=== PATIENT | female | born 1995 | race Hispanic/Latino ===

== ENCOUNTER 2017-07-30 19:35 | Observation (INO) | payer MEDICAID ==
[~2017-07-30] VITALS: Ht 149.9 cm; Wt 64.0 kg
[2017-07-30 20:23] LABS: APPEARANCE,URINE Cloudy (CLEAR); BILIRUBIN,URINE Negative (NEGATIVE); COLOR,URINE Yellow (YELLOW); GLUCOSE, URINE (UA) TRACE mg/dL (NEGATIVE); KETONES,URINE Trace mg/dL (NEGATIVE); LEUKOCYTE ESTERASE ,URINE Large (NEGATIVE); NITRATE,URINE Negative (NEGATIVE); OCCULT BLOOD,URINE Negative (NEGATIVE); PROTEIN,URINE Trace (NEGATIVE)
[2017-07-30] MEDS ORDERED: CEPHALEXIN 500 MG CAPSULE ONE (20:38)
[2017-07-30] MEDS ORDERED: PREN-196 PO (20:53)
[2017-07-30 20:57] LABS: BACTERIA,URINE Few /HPF (None Seen); RBC,URINE None Seen /HPF (0-1)
[2017-07-30 20:58] LABS: SQUAMOUS EPITHELIAL CELL,UR 30-50 /LPF (0-2)
[2017-07-30] MEDS ORDERED: LACTATED RINGERS 1000ML 1,000 ML IV SCH (21:00)
== END 2017-07-30 23:03 | disposition home or self-care (01) ==
LOC: EDH 19:35 → LDH 21:01
PROVIDERS: ADMIT Obstetrics & Gynecology; ATTEND Obstetrics & Gynecology
DX: O26.893 Other specified pregnancy related conditions, third trimester (principal); R10.2 Pelvic and perineal pain; Z3A.37 37 weeks gestation of pregnancy; M54.9 Dorsalgia, unspecified
CPT/HCPCS: 81001; 87088; 87186; 87804 ×2; 96360; 99285; G0378 ×2; J7120

== ENCOUNTER 2017-08-20 00:39 | Inpatient (IN) | payer MEDICAID ==
[~2017-08-20] VITALS: Ht 149.9 cm; Wt 63.5 kg
[~2017-08-20 00:39] MED LIST: PREN-196 PO
[2017-08-20 01:28] LABS: APPEARANCE,URINE Cloudy (CLEAR); BILIRUBIN,URINE Negative (NEGATIVE); COLOR,URINE Yellow (YELLOW); GLUCOSE, URINE (UA) Negative (NEGATIVE); KETONES,URINE >=160 mg/dL (NEGATIVE); LEUKOCYTE ESTERASE ,URINE Moderate (NEGATIVE); NITRATE,URINE Negative (NEGATIVE); OCCULT BLOOD,URINE Negative (NEGATIVE); PROTEIN,URINE Trace (NEGATIVE)
[2017-08-20 01:35] LABS: AMORPHOUS SEDIMENT,UR Many /LPF (None Seen); BACTERIA,URINE Few /HPF (None Seen); MUCUS,URINE Moderate LPF (None Seen); RBC,URINE 0-1 /HPF (0-1); SQUAMOUS EPITHELIAL CELL,UR Moderate /LPF (0-2)
[2017-08-20] MEDS ORDERED: MEPERIDINE-PF 50 MG/ML SYG IVP ONE (01:45)
[2017-08-20] MEDS ORDERED: NALOXONE HCL 0.4 MG/1 ML ML IV PRN (01:45)
[2017-08-20] MEDS ORDERED: PROMETHAZINE HCL 25 MG/ML 1ML AMPULE IM SCH ×2 (01:45→13:45)
[2017-08-20] MEDS ORDERED: EPHEDRINE SULFATE 50 MG/ML AMPULE IVP PRN (01:45)
[2017-08-20] MEDS ORDERED: LACTATED RINGERS 500 ML 500 ML IV PRN (01:45)
[2017-08-20 03:13] LABS: HEMATOCRIT 33.7 % (36-48); MEAN CORPUSCULAR HEMOGLOBIN 22.5 pg (27.0-33.0); MEAN CORPUSCULAR HGB CONC 31.9 g/dL (32.0-36.0); MEAN CORPUSCULAR VOLUME 70.4 fL (79-99); PLATELET COUNT (AUTO) 244 K/uL (130-400); RED BLOOD CELL COUNT(AUTO) 4.79 MIL/uL (4.00-5.50); RED CELL DISTRIBUTION WIDTH 15.6 % (11.0-15.5)
[2017-08-20] MEDS ORDERED: AMPICILLIN 2GM+NS 100ML 100 ML IV SCH (03:15)
[2017-08-20] MEDS: LACTATED RINGERS 1000ML 1,000 ML IV PRN ×2 (03:41→10:55)
[2017-08-20] MEDS: AMPICILLIN 1GM+NS 50ML 50 ML IV SCH ×4 (07:45→18:51)
[2017-08-20] MEDS ORDERED: OXYTOCIN 10 USP UNITS/ML 20 UNIT in LACTATED RINGERS 1000ML 1,000 ML IV SCH (12:15)
[2017-08-20] MEDS ORDERED: LACTATED RINGERS 1000ML 1,000 ML IV ONE ×2 (12:36→16:47)
[2017-08-20] MEDS ORDERED: OXYTOCIN 10 USP UNITS/ML ONE ×2 (12:37→16:47)
[2017-08-20] MEDS ORDERED: MEPERIDINE-PF 50 MG/ML SYG IVP SCH (13:45)
[2017-08-20] MEDS ORDERED: MEASLES/MUMPS/RUBELLA VACCINE, LIVE 0.5 ML/VIAL SQ PRN (16:00)
[2017-08-20] MEDS ORDERED: BENZOCAINE/LANOLIN/ALOE VERA 60 ML AEROSOL TP PRN (16:00)
[2017-08-20] MEDS ORDERED: DIPH,PERTUSS(ACELL),TET VAC/PF 0.5 ML VIAL IM PRN (16:00)
[2017-08-20] MEDS ORDERED: OXYTOCIN-LR 20 UNITS/1000 ML 1,000 ML IV SCH (16:00)
[2017-08-20] MEDS ORDERED: LANOLIN 30GM OINTMENT TP PRN (16:00)
[2017-08-20] MEDS ORDERED: WITCH HAZEL 1 PAD TP PRN (16:00)
[2017-08-20] MEDS ORDERED: ACETAMINOPHEN 325 MG TAB PO PRN (16:00)
[2017-08-20 17:57] VITALS: BP 122/69
[2017-08-20] MEDS ORDERED: PERMETHRIN LOTION 1% 59ML BOTTLE TP SCH (18:30)
[2017-08-20] MEDS: IBUPROFEN 600 MG TABLET PO PRN (18:56)
[2017-08-20 20:11] VITALS: BP 108/64
[2017-08-20] MEDS: DOCUSATE SODIUM 100 MG CAP PO SCH (22:06)
[2017-08-20 23:00] VITALS: BP 103/59
[2017-08-21 03:40] VITALS: BP 98/57
[2017-08-21 06:45] LABS: HEMATOCRIT 30.7 % (36-48); MEAN CORPUSCULAR HGB CONC 32.4 g/dL (32.0-36.0); MEAN CORPUSCULAR VOLUME 71.1 fL (79-99); PLATELET COUNT (AUTO) 243 K/uL (130-400); RED BLOOD CELL COUNT(AUTO) 4.31 MIL/uL (4.00-5.50); RED CELL DISTRIBUTION WIDTH 15.5 % (11.0-15.5); WHITE BLOOD COUNT (AUTO) 12.9 K/uL (4.8-10.8)
[2017-08-21 07:55] VITALS: BP 92/58
[2017-08-21] MEDS: DOCUSATE SODIUM 100 MG CAP PO SCH (08:27)
[2017-08-21 09:17] LABS: HEPATITIS Bs ANTIGEN SCREEN P Negative (Negative)
[2017-08-21 11:36] VITALS: BP 102/67
[2017-08-21] MEDS: IBUPROFEN 600 MG TABLET PO PRN (12:15)
[2017-08-21 15:32] VITALS: BP 98/60
== END 2017-08-21 17:30 | disposition home or self-care (01) | DRG 560 ==
LOC: EDH 00:39 → LDH 00:40 → OBSVTOIN 01:44 → LDH 02:40 → WSH 17:55
PROVIDERS: ADMIT Obstetrics & Gynecology; ATTEND Obstetrics & Gynecology
PROC: 10E0XZZ Delivery of Products of Conception, External Approach (ICD-10-PCS; principal; 2017-08-20)
PROC: 10907ZC Drainage of Amniotic Fluid, Therapeutic from Products of Conception, Via Natural or Artificial Opening (ICD-10-PCS; 2017-08-20)
PROC: 3E0234Z Introduction of Serum, Toxoid and Vaccine into Muscle, Percutaneous Approach (ICD-10-PCS; 2017-08-20)
PROC: 3E0134Z Introduction of Serum, Toxoid and Vaccine into Subcutaneous Tissue, Percutaneous Approach (ICD-10-PCS; 2017-08-20)
DX: O69.81X0 Labor and delivery complicated by cord around neck, without compression, not applicable or unspecified (principal); Z23 Encounter for immunization; Z3A.39 39 weeks gestation of pregnancy; Z37.0 Single live birth
CPT/HCPCS: 36415; 81001; 85027; 86592; 86701; 86850; 86900; 86901; 87340; 87390; 90707; 90715; A4606; J0290; J2175; J2550; J2590; J7120

== ENCOUNTER 2018-12-14 14:53 | Emergency (ER) | payer MEDICAID, OTHER ==
[2018-12-14] MEDS ORDERED: METOCLOPRAMIDE 10 MG TABLET ONE (15:17)
[2018-12-14] MEDS ORDERED: ACETAMINOPHEN EXTRA STRENGTH 500 MG TABLET ONE (15:17)
[2018-12-14 15:29] LABS: APPEARANCE,URINE CLOUDY (CLEAR); BASOPHILS % (AUTO) 0.2 % (0.0-5.0); BILIRUBIN,URINE NEGATIVE (NEGATIVE); COLOR,URINE YELLOW (YELLOW); EOSINOPHILS % (AUTO) 0.2 % (0.0-8.0); GLUCOSE, URINE (UA) NEGATIVE (NEGATIVE); HEMATOCRIT 41.5 % (36-48); KETONES,URINE 15 mg/dL (NEGATIVE); LEUKOCYTE ESTERASE ,URINE SMALL (NEGATIVE); LYMPHOCYTES % (AUTO) 7.3 % (21.0-51.0); MEAN CORPUSCULAR HEMOGLOBIN 27.2 pg (27.0-33.0); MEAN CORPUSCULAR HGB CONC 34.4 g/dL (32.0-36.0); MEAN CORPUSCULAR VOLUME 78.9 fL (79-99); MONOCYTES % (AUTO) 7.3 % (3.0-13.0); NITRATE,URINE NEGATIVE (NEGATIVE); NUCLEATED RED BLOOD CELLS 0.1 % (0.0-0.19); OCCULT BLOOD,URINE NEGATIVE (NEGATIVE); PLATELET COUNT (AUTO) 263 K/uL (130-400); PROTEIN,URINE TRACE mg/dL (NEGATIVE); RED BLOOD CELL COUNT(AUTO) 5.26 MIL/uL (4.00-5.50); RED CELL DISTRIBUTION WIDTH 13.5 % (11.0-15.5); WHITE BLOOD COUNT (AUTO) 8.3 K/uL (4.8-10.8)
[2018-12-14 15:36] LABS: HCG,QUAL RESULT NEGATIVE (NEGATIVE)
[2018-12-14 15:39] LABS: CREATININE 0.7 mg/dL (0.5-1.5); POTASSIUM 3.3 mmol/L (3.5-5.1)
[2018-12-14 15:43] LABS: BACTERIA,URINE Few /HPF (None Seen); MUCUS,URINE Moderate LPF (None Seen); RBC,URINE 0-1 /HPF (0-1); SQUAMOUS EPITHELIAL CELL,UR Few /HPF (0-2)
[2018-12-14 15:44] LABS: BILIRUBIN,TOTAL 0.4 mg/dL (0.2-1.0); TOTAL PROTEIN, SERUM 7.9 g/dL (6.0-8.3)
== END 2018-12-14 16:29 | disposition home or self-care (01) ==
LOC: EDH 14:53
DX: B34.9 Viral infection, unspecified (principal)
CPT/HCPCS: 36415; 80053; 81001; 81025; 85025; 87804

== ENCOUNTER 2019-07-11 12:49 | Emergency (ER) | payer SELFPAY | END 2019-07-11 13:32 | disposition home or self-care (01) | LOC: EDH 12:49 | DX: F41.1 Generalized anxiety disorder (principal) ==

== ENCOUNTER 2022-07-06 07:13 | Emergency (ER) | payer OTHER ==
[~2022-07-06] VITALS: Ht 149.9 cm; Wt 63.5 kg
[2022-07-06] MEDS ORDERED: ACETAMINOPHEN 500 MG TABLET PO STA (07:30)
[2022-07-06] MEDS ORDERED: ACETAMINOPHEN 500 MG TABLET PO SCH (08:00)
[2022-07-06 08:06] LABS: HEMATOCRIT 40.1 % (36-48); MEAN CORPUSCULAR HEMOGLOBIN 27.9 pg (27.0-33.0); MEAN CORPUSCULAR HGB CONC 33.4 g/dL (32.0-36.0); MEAN CORPUSCULAR VOLUME 83.5 fL (79-99); PLATELET COUNT (AUTO) 255 K/uL (130-400); RED CELL DISTRIBUTION WIDTH 12.4 % (11.0-15.5); WHITE BLOOD COUNT (AUTO) 10.8 K/uL (4.8-10.8)
[2022-07-06 08:12] LABS: APPEARANCE,URINE CLOUDY (CLEAR); BILIRUBIN,URINE NEGATIVE (NEGATIVE); COLOR,URINE LIGHT-YELLOW (YELLOW); GLUCOSE, URINE (UA) NEGATIVE (NEGATIVE); KETONES,URINE 10 mg/dL (NEGATIVE); LEUKOCYTE ESTERASE ,URINE 500 Leu/uL (NEGATIVE); NITRATE,URINE 2+ (NEGATIVE); OCCULT BLOOD,URINE SMALL (NEGATIVE); PROTEIN,URINE 20 mg/dL (NEGATIVE); UROBILINOGEN,URINE 0.2 mg/dL (0.2-1.0)
[2022-07-06 08:17] LABS: CREATININE 0.9 mg/dL (0.5-1.5); POTASSIUM 3.6 mmol/L (3.5-5.1)
[2022-07-06 08:18] LABS: HCG,QUALITATIVE URINE NEGATIVE (NEGATIVE)
[2022-07-06 08:22] LABS: ALBUMIN 4.1 g/dL (3.5-5.0); TOTAL PROTEIN, SERUM 8.3 g/dL (6.0-8.3)
[2022-07-06 08:32] LABS: BACTERIA,URINE MOD /HPF (None Seen); MUCUS,URINE RARE LPF (None Seen); SQUAMOUS EPITHELIAL CELL,UR MOD /HPF (0-2); WBC,URINE TNTC /HPF (0-1)
[2022-07-06 09:02] LABS: LYMPHOCYTES % (MANUAL) 29 % (22-44); MONOCYTES % (MANUAL) 9 % (2-9); SEGMENTED NEUTROPHILS % 62 % (40-70)
[2022-07-06 09:03] LABS: MAN.DIFF COMMENT-IMPRESSION MANUAL DIFFERENTIAL; PLATELET MORPHOLOGY COMMENT ADEQUATE
[2022-07-06] MEDS ORDERED: CEFTRIAXONE 1G VIAL IVP STA (09:24)
[2022-07-06] MEDS ORDERED: 0.9%NACL 1000ML 1,000 ML IV ONE (09:30)
[2022-07-06] MEDS ORDERED: CEPH500B PO (10:34)
[2022-07-06] MEDS ORDERED: POLY17PO4 PO (10:34)
[2022-07-06 10:42] VITALS: BP 107/65
== END 2022-07-06 10:49 | disposition home or self-care (01) ==
LOC: EDH 07:13
DX: N39.0 Urinary tract infection, site not specified (principal); K59.00 Constipation, unspecified
CPT/HCPCS: 99284; 74176; 96374; 96361; 80053; 85025; 87040 ×2; 87077; 87088; 87186; 83605; 81001; 81025; 36415; J7030; J0696

== ENCOUNTER 2022-12-10 15:53 | Emergency (ER) | payer OTHER ==
[~2022-12-10] VITALS: Ht 149.9 cm; Wt 63.5 kg
[~2022-12-10 15:53] MED LIST changes: +CEPH500B PO; +POLY17PO4 PO; -PREN-196 PO
[2022-12-10 17:10] LABS: APPEARANCE,URINE CLOUDY (CLEAR); BILIRUBIN,URINE NEGATIVE (NEGATIVE); COLOR,URINE YELLOW (YELLOW); GLUCOSE, URINE (UA) NEGATIVE (NEGATIVE); KETONES,URINE 10 mg/dL (NEGATIVE); LEUKOCYTE ESTERASE ,URINE 75 Leu/uL (NEGATIVE); NITRATE,URINE 2+ (NEGATIVE); OCCULT BLOOD,URINE NEGATIVE (NEGATIVE); PROTEIN,URINE 50 mg/dL (NEGATIVE); UROBILINOGEN,URINE 0.2 mg/dL (0.2-1.0)
[2022-12-10 17:12] LABS: HCG,QUALITATIVE URINE NEGATIVE (NEGATIVE)
[2022-12-10 17:16] LABS: BACTERIA,URINE MOD /HPF (None Seen); MUCUS,URINE MOD LPF (None Seen); SQUAMOUS EPITHELIAL CELL,UR RARE /HPF (0-2); WBC,URINE 26-50 /HPF (0-1); YEAST,URINE BUDDING FEW /HPF (None Seen)
[2022-12-10 17:55] LABS: BASOPHILS % (AUTO) 0.4 % (0.0-5.0); HEMATOCRIT 44.3 % (36-48); LYMPHOCYTES % (AUTO) 13.6 % (21.0-51.0); MEAN CORPUSCULAR HEMOGLOBIN 27.5 pg (27.0-33.0); MEAN CORPUSCULAR HGB CONC 33.4 g/dL (32.0-36.0); MEAN CORPUSCULAR VOLUME 82.2 fL (79-99); MONOCYTES % (AUTO) 5.2 % (3.0-13.0); NEUTROPHILS % (AUTO) 80.4 % (40.0-77.0); PLATELET COUNT (AUTO) 327 K/uL (130-400); RED BLOOD CELL COUNT(AUTO) 5.39 MIL/uL (4.00-5.50); RED CELL DISTRIBUTION WIDTH 12.9 % (11.0-15.5); WHITE BLOOD COUNT (AUTO) 10.7 K/uL (4.8-10.8)
[2022-12-10] MEDS ORDERED: 0.9%NACL 1000ML 1,000 ML IV ONE (18:00)
[2022-12-10] MEDS ORDERED: ONDANSETRON 4MG INJ IVP ONE (18:00)
[2022-12-10 18:04] LABS: CREATININE 0.8 mg/dL (0.5-1.5); POTASSIUM 3.9 mmol/L (3.5-5.1)
[2022-12-10 18:09] LABS: ALBUMIN 4.8 g/dL (3.5-5.0); TOTAL PROTEIN, SERUM 8.9 g/dL (6.0-8.3)
[2022-12-10 18:25] VITALS: BP 114/76
[2022-12-10] MEDS ORDERED: CEFTRIAXONE 1G VIAL IVPB ONE (18:30)
[2022-12-10] MEDS ORDERED: ONDA4TAB10 PO (18:30)
[2022-12-10] MEDS ORDERED: DOXY100T2 PO (18:30)
[2022-12-10] MEDS ORDERED: AZITHROMYCIN 250 MG TABLET PO ONE ×2 (18:30→19:00)
== END 2022-12-10 19:12 | disposition home or self-care (01) ==
LOC: EDH 15:53
DX: N73.9 Female pelvic inflammatory disease, unspecified (principal); R11.2 Nausea with vomiting, unspecified; Z79.899 Other long term (current) drug therapy
CPT/HCPCS: 99284; 96374; 96375; 80053; 85025; 87077; 87088; 87186; 81001; 81025; 36415; J7030; J0696; J2405